=== PATIENT | male | born 1955 | race Caucasian/White ===

== ENCOUNTER 2020-03-22 15:16 | Emergency (ER) | payer BC ==
[2020-03-22 15:25] VITALS: BP 126/80; PULSE 61
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
--- NOTE | 2020-03-22 17:13 | CR ---
Chest: Portable view of the chest was obtained. Comparison: No prior chest x-ray. Heart size and mediastinum: Heart size and mediastinum are normal. No mediastinal masses appreciated. Lungs: No definite acute parenchymal change is seen. Osseous structures: Bony structures are grossly intact. Impression: 1. Nothing acute is appreciated on frontal chest x-ray. Diagnostic code #1
== END 2020-03-22 17:55 | disposition home or self-care (01) ==
LOC: JD.ED 15:16
DX: U07.1 COVID-19 (principal)
CPT/HCPCS: 36415; 71045; 71045-26; 80053; 82728; 83615; 83735; 83880; 84484; 85007; 85027; 85379; 85610; 85730; 86140; 93005; 93010; 99283; 99285-25